=== PATIENT | female | born 1940 | race Caucasian/White ===

== ENCOUNTER → 2019-08-15 | Outpatient (CLI) | payer OTHER | LOC: HYPER 09:17 | DX: E11.622 Type 2 diabetes mellitus with other skin ulcer (principal); L97.221 Non-pressure chronic ulcer of left calf limited to breakdown of skin; L97.811 Non-pressure chronic ulcer of other part of right lower leg limited to breakdown of skin; L03.116 Cellulitis of left lower limb; R60.0 Localized edema; E11.22 Type 2 diabetes mellitus with diabetic chronic kidney disease; I12.9 Hypertensive chronic kidney disease with stage 1 through stage 4 chronic kidney disease, or unspecified chronic kidney disease; N18.3 Chronic kidney disease, stage 3 (moderate); E78.2 Mixed hyperlipidemia; I89.0 Lymphedema, not elsewhere classified; M81.0 Age-related osteoporosis without current pathological fracture; D64.9 Anemia, unspecified; R26.89 Other abnormalities of gait and mobility; Z86.718 Personal history of other venous thrombosis and embolism; Z79.4 Long term (current) use of insulin; Z79.01 Long term (current) use of anticoagulants ==

== ENCOUNTER → 2019-09-11 | Outpatient (CLI) | payer OTHER, BC ==
[~2019-09-11] VITALS: Ht 162.6 cm; Wt 99.0 kg
[~2019-09-11] MED LIST: ASA81BEC PO; CRESTOR10 MG PO; HUMALOG100 UNIT/1 SUBQ; LABETALOL HCL100 MG PO; LANTUS100 UNIT/M; LASIX 20 MG TAB20 MG PO; LISINOPRIL2.5 MG PO; NORVASC 2.5 MG2.5 M1 PO; NOVOLOG100 UNIT/M SUBQ; PLAVIX 75 MG TA75 MG PO; PROTONIX40 M2 PO
[2019-09-11 10:33] VITALS: BP 179/62
[2019-09-11 11:21] LABS: HEMATOCRIT 29.4 % (37.0-47.0); HEMOGLOBIN 9.6 gm/dL (12.0-15.0); MCH 26.2 pg (26.0-34.0); MCHC 32.6 g/dL (28.0-37.0); MCV 80.5 fL (80.0-100.0); RBC 3.65 mil/uL (4.20-5.00); RDW 16.4 % (10.5-14.5); WBC 7.9 thou/uL (4.0-11.0)
[2019-09-11 11:26] LABS: CALCIUM 8.5 mg/dL (8.5-10.1); CREATININE 1.4 mg/dL (0.6-1.0); POTASSIUM 4.4 mmol/L (3.5-5.1)
--- NOTE | 2019-09-11 13:17 | NUR ---
CALLED SON AND LET HIM KNOW PATIENT WAS BACK IN HER ROOM IN [facility].
== END | disposition home or self-care (01) ==
LOC: CATH 09:55
PROVIDERS: Nuclear Medicine Nuclear Cardiology
DX: I70.238 Atherosclerosis of native arteries of right leg with ulceration of other part of lower leg (principal); L97.919 Non-pressure chronic ulcer of unspecified part of right lower leg with unspecified severity; I25.10 Atherosclerotic heart disease of native coronary artery without angina pectoris; I12.9 Hypertensive chronic kidney disease with stage 1 through stage 4 chronic kidney disease, or unspecified chronic kidney disease; E11.22 Type 2 diabetes mellitus with diabetic chronic kidney disease; N18.9 Chronic kidney disease, unspecified; E78.00 Pure hypercholesterolemia, unspecified; K21.9 Gastro-esophageal reflux disease without esophagitis; Z98.890 Other specified postprocedural states; Z79.899 Other long term (current) drug therapy; Z88.8 Allergy status to other drugs, medicaments and biological substances; Z79.82 Long term (current) use of aspirin

== ENCOUNTER → 2019-09-14 | Outpatient (CLI) | payer OTHER, BC | LOC: HYPER 09:22 | DX: E11.622 Type 2 diabetes mellitus with other skin ulcer (principal); L97.221 Non-pressure chronic ulcer of left calf limited to breakdown of skin; L03.116 Cellulitis of left lower limb; E11.22 Type 2 diabetes mellitus with diabetic chronic kidney disease; I12.9 Hypertensive chronic kidney disease with stage 1 through stage 4 chronic kidney disease, or unspecified chronic kidney disease; N18.3 Chronic kidney disease, stage 3 (moderate); E78.2 Mixed hyperlipidemia; R60.0 Localized edema; I89.0 Lymphedema, not elsewhere classified; M81.0 Age-related osteoporosis without current pathological fracture; Z79.4 Long term (current) use of insulin; Z79.01 Long term (current) use of anticoagulants; Z86.718 Personal history of other venous thrombosis and embolism ==

== ENCOUNTER → 2019-10-04 | Outpatient (CLI) | payer OTHER, BC | END | disposition home or self-care (01) | LOC: SJCVCIMAG 09:41 | DX: I73.9 Peripheral vascular disease, unspecified (principal); I82.5Y2 Chronic embolism and thrombosis of unspecified deep veins of left proximal lower extremity; M79.89 Other specified soft tissue disorders ==

== ENCOUNTER → 2019-10-11 | Outpatient (CLI) | payer OTHER, BC | LOC: HYPER 08:54 | DX: E11.622 Type 2 diabetes mellitus with other skin ulcer (principal); L97.221 Non-pressure chronic ulcer of left calf limited to breakdown of skin; L03.116 Cellulitis of left lower limb; I89.0 Lymphedema, not elsewhere classified; E11.22 Type 2 diabetes mellitus with diabetic chronic kidney disease; I12.9 Hypertensive chronic kidney disease with stage 1 through stage 4 chronic kidney disease, or unspecified chronic kidney disease; N18.3 Chronic kidney disease, stage 3 (moderate); R26.89 Other abnormalities of gait and mobility; M81.0 Age-related osteoporosis without current pathological fracture; E78.2 Mixed hyperlipidemia; Z86.718 Personal history of other venous thrombosis and embolism; Z79.01 Long term (current) use of anticoagulants; Z79.4 Long term (current) use of insulin ==